=== PATIENT | female | born 1965 | race Hispanic/Latino ===

== ENCOUNTER → 2017-06-21 | Outpatient (CLI) | payer BC ==
[~2017-06-21] MED LIST: ATORVASTATIN CA10 MG PO; DITROPAN XL5 MG PO; LEVAQUIN500 MG PO; METOPROLOL TART50 MG PO; TYLENOL WITH C1 EACH PO
--- NOTE | 2017-06-21 10:43 | Diagnostic Imaging Report ---
PROCEDURE:ULTRASOUND GUIDANCE FOR PROCEDURE COMPARISON:None. INDICATIONS:Multinodular Nontoxic Goiter FINDINGS: See below. CONCLUSION:Please see dictation of the thyroid biopsy for full clinical details.. Dictated by: Carrillo Lopez M.D. on 06/21/2017 at 10:51 Electronically approved by: Carrillo Lopez M.D. on 06/21/2017 at 10:51
--- NOTE | 2017-06-21 10:44 | Diagnostic Imaging Report ---
PROCEDURE:ULTRASOUND GUIDANCE FOR PROCEDURE COMPARISON:None. INDICATIONS:Multinodular Goiter FINDINGS: See below. CONCLUSION:Please see the dictation of the thyroid biopsy for full clinical details. Dictated by: Carrillo Lopez M.D. on 06/21/2017 at 10:52 Electronically approved by: Carrillo Lopez M.D. on 06/21/2017 at 10:52
--- NOTE | 2017-06-21 10:45 | Diagnostic Imaging Report ---
PROCEDURE:BIOPSY THYROID FNA COMPARISON:None. INDICATIONS:Multinodular Nontoxic Goiter FINDINGS: See below. CONCLUSION: Please see the dictation of the thyroid biopsy for full clinical details. Dictated by: Carrillo Lopze M.D. on 06/21/2017 at 10:53 Electronically approved by: Carrillo Lopez M.D. on 06/21/2017 at 10:53
--- NOTE | 2017-06-21 10:54 | Diagnostic Imaging Report ---
PROCEDURE:BIOPSY THYROID FNA COMPARISON:Thyroid biopsy 02/08/2017. INDICATIONS:Multinodular Goiter FINDINGS: Written and verbal consent were obtained. Patient was placed supine. Focused sonographic evaluation of the right thyroid lobe demonstrated 2 separate nodules: The previously biopsied nodule was the 2.4 x 1.7 x 2.6 cm hypoechoic nodule in the interpolar region of the right thyroid lobe with increased vascularity. A 2.5 x 1.8 x 2.4 cm not hyperechoic nodule with increased vascularity is present in the superior pole of the right thyroid lobe. A safe entry route was identified and the overlying skin was prepped and draped in usual sterile fashion. Lidocaine 1% was used for local pain control. The hypoechoic nodule was addressed first. Utilizing direct sonographic guidance, the nodule was sampled with 25 gauge needles. Fine-needle aspiration biopsy samples x 6 were obtained. The specimens were given to pathology, who was at bedside. The pathologist determined the specimens to be of proper cellularity for diagnosis. The hyperechoic nodule was addressed second. Utilizing direct sonographic guidance, the nodule was sampled with 25 gauge needles. Fine-needle aspiration biopsy samples x 6 were obtained. The specimens were given to pathology, who was at bedside. The pathologist determined the specimens to be of proper cellularity for diagnosis. Upon completion, no hematoma was visualized. A sterile dressing was applied. The patient tolerated the procedure well, and there were no immediate post-procedural complications. CONCLUSION: Successful ultrasound-guided fine needle aspiration biopsy of the hypoechoic nodule in the interpolar region of the right thyroid lobe. Successful ultrasound-guided fine needle aspiration biopsy of the hyperechoic nodule in the superior pole of the right thyroid lobe. Dictated by: Carrillo Lopez M.D. on 06/21/2017 at 11:02 Electronically approved by: Carrillo Lopez M.D. on 06/21/2017 at 11:02
== END ==
LOC: US 08:20
PROVIDERS: ATTEND Otolaryngology
DX: E04.2 Nontoxic multinodular goiter (principal)
CPT/HCPCS: 10022; 76942; 88172; 88173; 88305

== ENCOUNTER → 2017-06-30 | Outpatient (CLI) | payer BC ==
--- NOTE | 2017-06-30 19:12 | Diagnostic Imaging Report ---
Parathyroid Scan Reason for exam: Hyperparathyroidism; hypercalcemia Radiopharmaceutical: Tc-99m sestamibi 26.5 mCi After intravenous administration of the radiopharmaceutical, immediate and 2-hour planar images of the neck and upper chest were obtained. Tomographic images of the neck and upper chest were obtained following the initial planar images. On the initial planar image, focal increased tracer activity is seen distinct from and superior to the upper pole of the right lobe of the thyroid. On the tomographic images, this focus of tracer accumulation is localized to posterior of the plane of the thyroid and more posterior than the location of the submandibular glands. On the delayed planar images, tracer washes out satisfactorily from the thyroid but not from the focus superior to the upper pole of the right thyroid lobe. No other focal abnormalities are identified. Impression: Single enlarged hypermetabolic parathyroid gland is identified immediately superior and posterior to the upper pole of the right thyroid lobe. Signed by: Dr. Martha Gonzales M.D. on 06/30/2017 7:08 PM
== END ==
LOC: NM 11:50
PROVIDERS: ATTEND Internal Medicine
DX: E21.2 Other hyperparathyroidism (principal); N20.0 Calculus of kidney
CPT/HCPCS: 78071; A9500

== ENCOUNTER → 2017-09-09 | Outpatient (CLI) | payer BC ==
--- NOTE | 2017-09-18 18:48 | Polysomnography ---
DATE OF STUDY: September 09, 2017 POLYSOMNOGRAPHY REPORT REFERRING PHYSICIAN: Dr. Zimmerman. HISTORY OF PRESENT ILLNESS: The patient has snoring and excessive fatigue. She has persistent sleepiness during the day. She has difficulty initiating and maintaining sleep as well. INTERPRETATION: The patient slept for 368 minutes out of 383.3 minutes. The sleep efficiency was 93.2%. The sleep onset latency was 9 minutes. The latency to REM was 180 minutes. Patient spent 47.5 minutes in REM sleep, which was 13.8% of the night. There were a total of 1 apneic event and 13 hypopneic events. The apnea and hypopnea index was 2.4 events per hour. The patient spent 12.2% of the night in supine position and remainder of the night in non-supine position. Minimal saturation was 77%. Minimal heart rate was 45 beats per minute. The [place] sleep score was 18. The patient was desensitized to CPAP. CPAP titration was then started at 4 cm of water pressure and gradually increased to 13 cm. At 13 cm of water pressure, there were still nocturnal events. The patient was switched to BiPAP. The BiPAP was adjusted to 10/6 and increased to 13/8. At the setting of 13/8, the nocturnal events were successfully eliminated. The patient also had a backup rate of 14. IMPRESSION: Successful treatment of obstructive sleep apnea. RECOMMENDATIONS 1. BiPAP at 13/8 with a backup rate of 14. 2. Avoid alcohol or sedatives prior to retiring at night. 3. Medically supervised weight loss. Job#: [id number] CELESTE
== END ==
LOC: SLEEP 04:53
PROVIDERS: ATTEND Internal Medicine
DX: G47.9 Sleep disorder, unspecified (principal)
CPT/HCPCS: 95811

== ENCOUNTER 2018-01-28 20:48 | Emergency (ER) | payer BC ==
[~2018-01-28] VITALS: Ht 160 cm; Wt 93.9 kg
[2018-01-28] MEDS ORDERED: IBUPROFEN 400 MG TAB ONE (21:05)
[2018-01-28] MEDS ORDERED: IBUPROFEN 600 MG TAB PO STA (21:12)
[2018-01-28 22:13] LABS: BASOPHILS % 0.3 % (0.0-1.0); EOSINOPHILS # (AUTO) 0.1 (0.0-0.4); EOSINOPHILS % 0.8 % (0.0-6.0); HEMATOCRIT 34.1 % (34.2-44.1); HEMOGLOBIN 11.6 g/dL (12.0-16.0); LYMPHOCYTES # (AUTO) 1.2 (1.0-3.2); LYMPHOCYTES % 16.9 % (18.0-39.1); MEAN CORPUSCULAR HEMOGLOBIN 31.2 pg (28-32); MEAN CORPUSCULAR VOLUME 91.7 fL (81-99); MONOCYTES # (AUTO) 0.6 (0.2-0.8); MONOCYTES % 7.8 % (4.4-11.3); NEUTROPHILS # (AUTO) 5.2 (2.1-6.9); NEUTROPHILS % 73.6 % (38.7-80.0); PLATELET COUNT 303 x10e3/uL (140-360); RED BLOOD COUNT 3.72 x10e6/uL (3.6-5.1); RED CELL DISTRIBUTION WIDTH 12.9 % (11.7-14.4)
[2018-01-28 22:58] LABS: BILIRUBIN,URINE NEGATIVE (NEGATIVE); CLARITY,URINE CLOUDY (CLEAR); COLOR,URINE YELLOW (YELLOW); KETONES,URINE NEGATIVE (NEGATIVE); LEUKOCYTE ESTERASE ,URINE 1+ (NEGATIVE); NITRITE,URINE POSITIVE (NEGATIVE); PROTEIN,URINE DIPSTICK 2+ (NEGATIVE); URINE UROBILINOGEN 0.2 mg/dL (0.2 - 1)
[2018-01-28 23:06] LABS: BACTERIA,URINE MANY /HPF; EPITHELIAL CELLS,URINE FEW /LPF; TRANSITIONAL EPI CELLS,URINE FEW; WBC,URINE (MAN) >50 /HPF (0-5)
[2018-01-28] MEDS ORDERED: SODIUM CHLORIDE 0.9% 1000ML 1,000 ML IV ONE (23:15)
[2018-01-28] MEDS ORDERED: CEFTRIAXONE SOD 1 GM VIAL IV ONE (23:15)
--- NOTE | 2018-01-28 23:22 | Diagnostic Imaging Report ---
CHEST SINGLE (PORTABLE), 01/28/2018 9:12 PM Technique: CHEST SINGLE (PORTABLE) Comparison: 05/24/2016 Clinical history: Fever Findings: See Impression Impression: Limited by portable technique and body habitus 1. Stable enlarged cardiomediastinal silhouette with prominent right mediastinal convexity, accentuated by technique. 2. No edema or consolidation. No effusion or pneumothorax. Signed by: Dr Tricia Baker MD on 01/28/2018 11:19 PM
[2018-01-29 00:03] LABS: ALANINE AMINOTRANSFERASE 280 IU/L (0-55); ALBUMIN 3.5 g/dL (3.5-5.0); ALBUMIN/GLOBULIN RATIO 0.9 (0.8-2.0); ALKALINE PHOSPHATASE 293 IU/L (40-150); ANION GAP 18.8 mmol/L (8-16); BLOOD UREA NITROGEN 12 mg/dL (7-26); BUN/CREATININE RATIO 15 (6-25); CALCIUM 10.7 mg/dL (8.4-10.2); CARBON DIOXIDE 23 mmol/L (22-29); CHLORIDE 101 mmol/L (98-107); CREATININE, SERUM 0.82 mg/dL (0.57-1.11); EST GLOMERULAR FILTRATION RATE > 60 ML/MIN (60-); GLUCOSE 199 mg/dL (74-118); POTASSIUM 3.8 mmol/L (3.5-5.1); SODIUM 139 mmol/L (136-145)
== END 2018-01-29 01:22 | disposition home or self-care (01) ==
LOC: ER 20:48
DX: R50.9 Fever, unspecified (principal); R53.83 Other fatigue; N30.90 Cystitis, unspecified without hematuria; E03.9 Hypothyroidism, unspecified; E78.5 Hyperlipidemia, unspecified
CPT/HCPCS: 36415; 71045; 80053; 81001; 83605; 85025; 87040; 87086; 87186; 99284; J0696; J7030